=== PATIENT | female | born 1950 | race Caucasian/White ===

== ENCOUNTER → 2021-05-23 | Day surgery (SDC) | payer MEDICARE, BC ==
[~2021-05-23] MED LIST: ALENDRONATE SOD70 MG PO; BUMEX PO; CALCIUM PO; CELEBREX100 MG PO; FENTANYL CITRATE/PF 100MCG/2 ML INJ ONE; GABAPENTIN300 MG PO; GLIPIZIDE5 MG PO; GLYCOPYRROLATE PO; LIPITOR10 MG PO; METFORMIN HCL500 M2 PO; METHOCARBAMOL750 MG PO; MIDAZOLAM HCL 2 MG/2 ML VIAL ONE; OR PHACO EYE KIT ONE; PANTOPRAZOLE SO40 MG PO; PREOP PHACO EYE KIT ONE; VITAMIN B12 PO; VITAMIN D PO; ZINC PO; ZYRTEC10 M3 PO
[2021-05-23 13:48] VITALS: BP 116/68
== END | disposition home or self-care (01) ==
LOC: OR 10:22
PROVIDERS: ATTEND Ophthalmology
DX: H25.11 Age-related nuclear cataract, right eye (principal); G47.33 Obstructive sleep apnea (adult) (pediatric); D64.9 Anemia, unspecified; E11.9 Type 2 diabetes mellitus without complications; K21.9 Gastro-esophageal reflux disease without esophagitis; K44.9 Diaphragmatic hernia without obstruction or gangrene; M45.2 Ankylosing spondylitis of cervical region; E78.5 Hyperlipidemia, unspecified; Z79.84 Long term (current) use of oral hypoglycemic drugs; Z79.899 Other long term (current) drug therapy; Z86.16 Personal history of COVID-19
CPT/HCPCS: 36415; 66984; 82948; J2250; J3010; U0002; V2632